=== PATIENT | male | born 1990 | race Caucasian/White ===

== ENCOUNTER 2024-06-19 18:11 | Emergency (ER) | payer BC, SELFPAY ==
[2024-06-19 18:12] VITALS: BP 157/102; PULSE 97; RESP 20; TEMP 36.6; O2SAT 99; BMI 51.0
[2024-06-19 20:11] VITALS: BP 132/85; PULSE 78; O2SAT 98
[2024-06-19 21:07] LABS: Absolute Lymphocyte Count 2.12 X10^3/uL (0.83-4.51); Absolute Neutrophil Count 11.3 X10^3/uL (2.0-7.7); Basophil# 0.03 X10^3/uL; Basophil% 0.2 % (0-1); Eosinophil# 0.09 X10^3/uL; Eosinophils% 0.6 % (0-5); Hematocrit 41.7 % (40-54); Hemoglobin 13.3 g/dL (13.0-16.5); Lymphocyte # 2.12 X10^3/ul (0.83-4.51); Lymphocyte % 14.4 % (19-41); Mean Corp Hgb Conc 31.9 g/dL (32-36); Mean Corpuscular Volume 87.8 fL (80-94); Monocyte# 1.12 X10^3/uL; Monocyte% 7.6 % (0-10); NRBC Flagged by Analyzer 0 % (0-5); Neutrophil # 11.27 X10^3/uL (2.7-7.7); Neutrophil % 76.8 % (47-70); Platelet Count 295 K/mm3 (150-450); RBC Distribution Width CV 14.2 % (11.6-14.6); RBC Distribution Width SD 45.9 fl (35.1-43.9); Red Blood Count 4.75 M/mm3 (4.6-6.2); White Blood Count 14.7 K/mm3 (4.4-11.0)
[2024-06-19 21:08] VITALS: BP 120/70; BP 135/85; BP 140/94; PULSE 107; PULSE 118; PULSE 98
[2024-06-19 21:17] LABS: Anion Gap 7 (5-15); BUN 17 mg/dL (7-18); Calcium,Total 8.9 mg/dL (8.5-10.1); Chloride 105 mmol/L (98-107); Creatinine, Serum 0.89 mg/dL (0.70-1.30); EST Glomerular Filtration Rate 103 mL/min (>60); Est Glom Filt Rate - Afr Amer 125 mL/min (>60); Estimated Creatinine Clearance 173.85 ml/min; Glucose 139 mg/dL (74-106); Potassium 3.9 mmol/L (3.5-5.1); Sodium Level 139 mmol/L (136-145)
--- NOTE | 2024-06-19 21:39 | CM.ED ---
Social work Reason for referral: no PCP Referral source: case find This SW identified patient's lack of PCP and need for resources. This SW entered patient's room, introducing self and role at [facility]. Patient's sister, Gill, bedside; patient stated willingness to speak in front of guest. Patient confirmed lack of PCP and stated recently moving back into the area after living out of state. Patient accepted resources of [facility] Provider Directory and Chanda MatsonAMEE information. Patient and patient's sister denied further needs at this time. Tess Jimenez, SPORTS ATHLETIC TRAINER, EIGHT ARM OPERATOR
--- NOTE | 2024-06-19 21:47 | EX.ED.DYSGE1 ---
HPI History of Present Illness Chief Complaint: Dizziness Detail of Chief Complaint: 2 episodes of vertigo with nausea pallor Informant: patient and spouse/S.O. Onset/Context/Timing Onset: Today (11 AM and 1700) Context: Sudden Onset Timing: Intermittent (Total time of episode 5 minutes) Quality: Vertigo with nausea and pallor and diaphoresis Location: Residents Current Severity: Gone Maximum Severity: Severe Worsened by: Nothing Relieved by: Lying on the floor Associated Symptoms Associated Symptoms: Nausea, pallor, diaphoresis Narrative Narrative: Patient is a 33-year-old male. He has history of type 2 diabetes on metformin. Patient states at 1100 he was walking down the steps when he abrupt onset of vertigo with nausea, diaphoresis pallor. He did not pass out. He denied double vision. He no trouble speech or swallowing. He denies paresthesia, anesthesia medics. He denies cardiac or respiratory symptoms. He had no other complaints. Prior similar symptoms: No Recent Illness/Hospital[facility]: [facility] Medical History Type 2 diabetes mellitus Home Medications ?Medication ?Instructions ?Recorded ?Last Taken ?Type diazepam 2 mg tablet (Valium) 2 mg PO TID PRN vertigo 4 days #10 06/19/24 Unknown Rx tabs Allergy/AdvReac Type Severity Reaction Status Date / Time amoxicillin (From Augmentin) Allergy Mild Nausea/Vom/ Verified 06/19/24 18:12 Diarrhea clavulanic acid (From Allergy Mild Nausea/Vom/ Verified 06/19/24 18:12 Augmentin) Diarrhea Social History household members: family housing: house current occupational status: employed Smoking Status: Never smoker ROS ROS ED Constitutional Constitutional ED: Denies chills, fever(s), subjective or sweats Eyes Eyes: Denies blurry vision, change in vision or diplopia ENT ENT ED: Denies ear pain, rhinorrhea or sore throat Cardiovascular Cardiovascular: Denies chest pain or palpitations Gastrointestinal Gastrointestinal: Reports nausea; Denies diarrhea, melena or vomiting Integumentary Denies rash Neurologic Neurologic: Denies headache(s), paresthesias or weakness Hematologic/Lymphatic Hematologic/Lymphatic: Reports systems reviewed and no addt'l complaints, except as documented EXAM Physical Exam Const Vital Signs: 06/19/24 18:12 06/19/24 20:11 06/19/24 21:08 Temperature 97.9 F Temperature Source Temporal Pulse Rate 97 78 Pulse Rate [Lying] 98 Pulse Rate [Sitting (for 1 minute prior to obtaining)] 107 H Pulse Rate [Standing (for 1 minute prior to obtaining)] 118 H Respiratory Rate 20 H Blood Pressure 157/102 H 132/85 H Blood Pressure [Lying] 120/70 Blood Pressure [Sitting (for 1 minute prior to obtaining)] 140/94 H Blood Pressure [Standing (for 1 minute prior to obtaining)] 135/85 H Blood Pressure Mean 120 100 Blood Pressure Mean [Lying] 86 Blood Pressure Mean [Sitting (for 1 minute prior to obtaining)] 109 Blood Pressure Mean [Standing (for 1 minute prior to obtaining)] 101 Pulse Ox 99 98 Oxygen Delivery Method Room Air Blood pressure is elevated. Orthostatic vital signs were negative. Positive well nourished and well developed Constitutional Narrative: BMI is 51.0. General Appearance ED: well developed and NAD; Negative for cyanotic, diaphoretic or pallor HEENT Reports moist mucous membranes HEENT Narrative: Head is atraumatic normocephalic. Ears are normal. Nares are patent. TMs are normal. Uvula is midline. There is no deviation, trusion. Eyes EOMs intact bilaterally Eyes Narrative: There is no nystagmus. General Eye ED: Negative for pale conjunctiva or scleral icterus Neck no lymphadenopathy, supple and no JVD Neck Narrative: There are no carotid bruits. Resp normal respiratory effort and clear to auscultation bilaterally Cardio regular rate, regular rhythm, S1 normal heart sound, S2 normal heart sound and no murmurs Extremity normal to inspection General Extremety ED: Negative for edema or tenderness General Extremity: Negative for edema Neuro oriented x3, CN's II-XII intact bilaterally and no sensory deficits noted Neuro Narrative: There is no dysmetria. Gait was observed and normal. Tandem gait was normal. The eye askew test was negative. Lois-Hallpike was negative. There is no dysmetria. Sensorium / Orientation: alert Motor Exam: strength 5/5 throughout Psych mental status grossly normal Skin no rashes or lesions noted, no wounds and skin turgor normal General Skin Exam: elasticity normal; Negative for jaundice or pallor MDM MDM MDM Narrative Medical decision making narrative: History is suggestive of paroxysmal benign positional vertigo. With no complaint of headache, diplopia normal neurologic exam in my opinion CT is not indicated and does not evaluate the cerebellum well. Because he is diabetic and BMP was obtained assess renal function and electrolytes as well as glucose anion gap. CBC to assess white count and H&H. Lab Data Attestation: I reviewed the patient's lab results. Lab results narrative: White count is elevated and nonspecific. H&H is normal. Electrolyte panel is remarkable for a glucose of 139 with a normal CO2 anion gap. Labs: Laboratory Results - last 24 hr 06/19/24 20:20 WBC 14.7 H RBC 4.75 Hgb 13.3 Hct 41.7 MCV 87.8 MCH 28.0 MCHC 31.9 L RDW Std Deviation 45.9 H RDW Coeff of Woo 14.2 Plt Count 295 MPV 11.0 Immature Gran % (Auto) 0.400 Neut % (Auto) 76.8 H Lymph % (Auto) 14.4 L Hartley % (Auto) 7.6 Eos % (Auto) 0.6 Baso % (Auto) 0.2 Absolute Neuts (auto) 11.3 H Absolute Lymphs (auto) 2.12 Nucleated RBC % 0 Sodium 139 Potassium 3.9 Chloride 105 Carbon Dioxide 27.0 Anion Gap 7 BUN 17 Creatinine 0.89 Estim Creat Clear Calc 173.85 Est GFR (MDRD) Af Amer 125 Est GFR (MDRD) Non-Af 103 BUN/Creatinine Ratio 19.0 Glucose 139 H Calcium 8.9 Treatment and Re-Evaluation :: Patient was prescribed Valium for paroxysmal benign positional vertigo if this to recur. Discharge Plan Triage Chief Complaint: Dizziness ED Provider: Reynaldo Rouse Dx/Rx/DC Orders Clinical Impression: Benign paroxysmal positional vertigo, Type 2 diabetes mellitus, Elevated blood-pressure reading without diagnosis of hypertension Instructions: ED Hypertension, To Be Confirmed, ED Vertigo, Unspecified Prescriptions: New diazepam [Valium] 2 mg tablet 2 mg PO TID PRN (Reason: vertigo) 4 Days Qty: 10 0RF Primary Care Provider: Care Physician,No Primary Referrals: Care Physician,No Primary [Primary Care Provider] - Activity Restrictions/Additional Instructions: He need to find a physician that is on your health plan to have your blood pressure checked in 1 to 2 weeks. Take the Valium if you have episode of vertigo again. Print Language: Georgian Disposition Disposition: Home, Self Care
[2024-06-19 22:00] VITALS: BP 138/89; PULSE 89; RESP 16; O2SAT 99
[2024-06-19 22:13] VITALS: BP 138/89; PULSE 89; RESP 16; TEMP 36.8; O2SAT 99
== END 2024-06-19 22:18 | disposition home or self-care (01) ==
PROVIDERS: Emergency Provider Emergency Medicine; Visit Provider Emergency Medicine
DX: H81.10 Benign paroxysmal vertigo, unspecified ear (principal); E11.9 Type 2 diabetes mellitus without complications; R03.0 Elevated blood-pressure reading, without diagnosis of hypertension; Z79.84 Long term (current) use of oral hypoglycemic drugs
CPT/HCPCS: 80048; 85025; 99284; A4216